=== PATIENT | female | born 1940 | race Caucasian/White ===

== ENCOUNTER → 2016-12-04 | Outpatient (CLI) | payer OTHER | LOC: BHFA 09:15 | PROVIDERS: ATTEND Internal Medicine Cardiovascular Disease | DX: I27.2 Other secondary pulmonary hypertension (principal) ==

== ENCOUNTER → 2016-12-08 | Outpatient (CLI) | payer OTHER | LOC: BMCIMAGING 13:28 | DX: Z12.31 Encounter for screening mammogram for malignant neoplasm of breast (principal) | CPT/HCPCS: G0202 ==

== ENCOUNTER → 2017-04-04 | Outpatient (CLI) | payer OTHER | LOC: FIMAGING 11:49 | PROVIDERS: ATTEND Family Medicine | DX: Z13.820 Encounter for screening for osteoporosis (principal) ==

== ENCOUNTER → 2017-11-06 | Outpatient (CLI) | payer OTHER | LOC: BMCIMAGING 15:44 | PROVIDERS: ATTEND Physician Assistant | DX: M17.11 Unilateral primary osteoarthritis, right knee (principal) ==

== ENCOUNTER → 2017-12-13 | Outpatient (CLI) | payer OTHER | LOC: BMCIMAGING 14:05 | PROVIDERS: ATTEND Family Medicine | DX: Z12.31 Encounter for screening mammogram for malignant neoplasm of breast (principal) ==

== ENCOUNTER → 2018-01-21 | Outpatient (CLI) | payer OTHER | LOC: BHFA 08:30 | PROVIDERS: ATTEND Internal Medicine Cardiovascular Disease | DX: I49.3 Ventricular premature depolarization (principal) ==

== ENCOUNTER 2018-10-25 14:52 | Emergency (ER) | payer OTHER ==
--- NOTE | 2018-10-25 15:15 | EDPHY ---
H & P Stated Complaint: PATINO/sinus infection Time Seen by Provider: 10/25/18 15:15 - Personal History Current Tetanus/Diphtheria Vaccine: Yes - Medical/Surgical History Hx Asthma: No Hx Chronic Respiratory Disease: No Hx Diabetes: No Hx Cardiac Disease: No Hx Renal Disease: No Hx Cirrhosis: No Hx Alcoholism: No Hx HIV/AIDS: No Hx Splenectomy or Spleen Trauma: No Other PMH: sezuire x 1 30 years ago, prediabetic, carpel tunnel B, catract surgery B, - Social History Smoking Status: Former smoker Constitutional: Initial Vital Signs Temperature (C) 38.0 C 10/25/18 14:59 Heart Rate 87 10/25/18 14:59 Respiratory Rate 18 10/25/18 14:59 Blood Pressure 123/52 H 10/25/18 14:59 O2 Sat (%) 83 L 10/25/18 14:59 O2 Delivery Mode Room Air O2 (L/minute) 2 Allergies/Adverse Reactions: amoxicillin [Amoxicillin] Allergy (Verified 10/25/18 15:03) clindamycin HCl [From Cleocin] Allergy (Verified 10/25/18 15:03) clindamycin palmitate HCl [From Cleocin] Allergy (Verified 10/25/18 15:03) clindamycin phosphate [From Cleocin] Allergy (Verified 10/25/18 15:03) erythromycin base [Erythromycin Base] Allergy (Verified 10/25/18 15:03) penicillin G Allergy (Verified 10/25/18 15:03) phenytoin sodium [From Dilantin] Allergy (Verified 10/25/18 15:03) phenytoin sodium extended [From Dilantin] Allergy (Verified 10/25/18 15:03) Home Medications: Medication Instructions Recorded Albuterol Sulfate [Albuterol 1 inh IH DAILY PRN 06/05/14 Inhaler Hfa] Cholecalciferol Vit D3 [Vitamin D3 1,000 unit PO DAILY 06/05/14 (*)] Fluticasone/Salmeter 500/50Mcg 1 inh IH DAILY 06/05/14 [Advair 500/50 (*)] Levothyroxine [Synthroid 112 mcg 112 mcg PO DAILY 06/05/14 (*)] Multivitamins [Multivitamin (*)] 1 tab PO DAILY 06/05/14 Aspirin [Aspirin 325 mg (*)] 325 mg PO DAILY PRN 06/12/14 Ibuprofen [Advil] 200 mg PO DAILY PRN 06/12/14 Enoxaparin [Lovenox] 30 mg SC BID #20 syr 06/27/14 traMADol [Ultram 50 mg (*)] 100 mg PO BID #40 tab 06/27/14 Fluticasone Nasal [Flonase Nasal 2 sprays NASAL BID #1 mdi 10/25/18 [place] (RX)] Sulfamethox/Tmp 800/160 mg 1 tab PO BID #14 tab 10/25/18 [Bactrim Ds] methylPREDNISolone [Medrol Dose 1 each PO AD #1 ea 10/25/18 Ruy] Medical Decision Making - Diagnostics Imaging Results: Imaging Impressions Head CT 10/25/18 15:25 Impression: 1. Mild bilateral maxillary sinusitis. Hypoplastic frontal sinuses. 2. No acute hemorrhage, hydrocephalus, or mass effect. 3. Cerebrovascular atherosclerosis. 4. No definite acute infarct. 5. Mild cerebral atrophy and mild microvascular ischemic gliosis. 6. Consider MRI of the brain, if there is continued clinical concern. Findings and recommendations discussed with Emergency Department physician, Lit Chandler MD, at 1605 hour, 10/25/2018. Final report concurs with initial preliminary interpretation. Chest X-Ray 10/25/18 15:26 Impression: 1. Findings most consistent with airways disease are noted. 2. See above report for additional findings. Imaging: Discussed imaging studies w/ scallop dredger Radiologist, I viewed and interpreted images myself ED Course/Re-evaluation: CHIEF COMPLAINT: Sinus pressure and headache. HISTORY OF PRESENT ILLNESS: The patient is a 77 y/o female with a history of pulmonary hypertension and asthma complaining of a headache and sinus pressure onset 2 weeks ago. She initially had a cough as well, but this has improved. However, now she is having painful sinuses and more nasal discharge than normal. The patient is normally on 2L supplemental oxygen and has O2Sats in the 80's, but she feels like the oxygen is not enough. No body aches, lightheadedness, chest pain, heart palpitations, shortness of breath, cough, abdominal pain, urinary or bowel complaints, numbness, paresthesias. REVIEW OF SYSTEMS: A comprehensive 10 system review of systems is otherwise negative aside from elements mentioned in the history of present illness and medical decision making. PHYSICAL EXAM: HR, BP, O2 Sat, RR. Temp noted General Appearance: Alert, well hydrated, appropriate, and non-toxic appearing. Head: Warmth and redness over the frontal sinuses that is exquisitely tender to the touch. Atraumatic without scalp tenderness or obvious injury Eyes: Pupils equal, round, reactive to light and accommodation, EOMI, no trauma , no injection. Ears: Clear bilaterally, no perforation, normal landmarks Nose: Atraumatic, no rhinorrhea, clear. Throat: There is no erythema or exudates, no lesions, normal tonsils, mucus membranes moist. Neck: Submandibular gland swelling. Supple, 2+ carotid upstroke, nontender, no lymphadenopathy. Respiratory: No retractions, no distress, no wheezes, and no accessory muscle use. Lungs are clear to auscultation bilaterally. Cardiovascular: Regular rate and rhythm, no murmurs, rubs, or gallops. Bilateral carotid, radial, dorsalis pedis, and posterior tibial pulses intact. Good capillary refill all extremities. Gastrointestinal: Abdomen is soft, nontender, non-distended, no masses, no rebound, no guarding, no peritoneal signs. Musculoskeletal: Normal active ROM of all extremities, atraumatic. Neurological: Alert, appropriate, and interactive. The patient has normal DTRs and non-focal cranial nerves, motor, sensory, and cerebellar exam. Skin: No rashes, good turgor, no nodules on palpation. Past medical history: Pulmonary hypertension, asthma (on Advair) Past surgical history: Cataract Family history: Denies Social history: at bedside, retired, lives in [place] DIAGNOSTICS/PROCEDURES/CRITICAL CARE TIME: Chest x-ray: Consistent with airways disease Head CT: Maxillary sinusitis, no signs of frontal sinusitis DIFFERENTIAL DIAGNOSIS: The differential diagnosis for the patient's headache included but was not limited to subarachnoid hemorrhage, migraine headache, tension headache and infectious causes such as meningitis, pharyngitis and sinusitis. MEDICAL DECISION MAKING: The patient is a 77 y/o female with a history of pulmonary hypertension and asthma presenting with a headache and sinus pressure onset 2 weeks ago. On exam she has erythema and warmth over the frontal sinuses that is exquisitely tender to the touch. She also has submandibular gland swelling. In addition to the frontal sinusitis symptoms she has O2Sats in the low 90's while in 2L O2, which the patient states is normal. Patient will need to have a head CT as I assume she has a moderate/severe frontal sinusitis. Chest x-ray, head CT, and labs ordered. 1547: Patient has an elevated WBC with a left shift. 1602: I spoke with Dr. Mejia, radiologist, regarding patient's head CT. Patient has maxillary sinusitis, but no signs of frontal sinusitis. Patient will need to start Bactrim, Medrol dose pack, and Flonase. She continues to not have worsening hypoxemia or dyspnea. 1631: Reassessed patient and discussed laboratory and imaging findings. Patient' s urine is probably contaminated. Her elevated WBC is most likely due to the sinusitis. She is comfortable with starting Bactrim, Medrol dose pack, and Flonase. I have advised her to follow up with an ENT. Return precautions provided; patient is comfortable with this plan. - Data Points Laboratory Results: Laboratory Results 10/25/18 15:30 10/25/18 15:30 10/25/18 10/25/18 10/25/18 16:16 15:30 15:30 WBC 18.38 10^3/uL H 10^3/uL (3.80-9.50) RBC 4.97 10^6/uL 10^6/uL (4.18-5.33) Hgb 14.6 g/dL g/dL (12.6-16.3) Hct 44.1 % % (38.0-47.0) MCV 88.7 fL fL (81.5-99.8) MCH 29.4 pg pg (27.9-34.1) MCHC 33.1 g/dL g/dL (32.4-36.7) RDW 14.5 % % (11.5-15.2) Plt Count 300 10^3/uL 10^3/uL (150-400) MPV 9.5 fL fL (8.7-11.7) Neut % (Auto) 89.2 % H % (39.3-74.2) Lymph % (Auto) 5.2 % L % (15.0-45.0) Kay % (Auto) 5.0 % % (4.5-13.0) Eos % (Auto) 0.0 % L % (0.6-7.6) Baso % (Auto) 0.2 % L % (0.3-1.7) Nucleat RBC Rel Count 0.0 % % (0.0-0.2) Absolute Neuts (auto) 16.41 10^3/uL H 10^3/uL (1.70-6.50) Absolute Lymphs (auto) 0.95 10^3/uL L 10^3/uL (1.00-3.00) Absolute Monos (auto) 0.91 10^3/uL H 10^3/uL (0.30-0.80) Absolute Eos (auto) 0.00 10^3/uL L 10^3/uL (0.03-0.40) Absolute Basos (auto) 0.03 10^3/uL 10^3/uL (0.02-0.10) Absolute Nucleated RBC 0.00 10^3/uL 10^3/uL (0-0.01) Immature Gran % 0.4 % % (0.0-1.1) Immature Gran # 0.08 10^3/uL 10^3/uL (0.00-0.10) Sodium 132 mEq/L L mEq/L (135-145) Potassium 4.5 mEq/L mEq/L (3.5-5.2) Chloride 99 mEq/L mEq/L (97-110) Carbon Dioxide 24 mEq/l mEq/l (22-31) Anion Gap 9 mEq/L mEq/L (6-14) BUN 20 mg/dL mg/dL (7-23) Creatinine 1.0 mg/dL mg/dL (0.6-1.0) Estimated GFR 54 Glucose 134 mg/dL H mg/dL (70-100) Calcium 9.3 mg/dL mg/dL (8.5-10.4) Urine RBC 25-50 /hpf H /hpf (0-3) Urine WBC 50-182 /hpf H /hpf (0-3) Ur Epithelial Cells 1+ /lpf /lpf (NONE-1+) Hyaline Casts 25-50 /lpf H /lpf (0-1) Urine Mucus 4+ /lpf H /lpf (NONE-1+) Departure - Departure Disposition: Home, Routine, Self-Care Clinical Impression: Maxillary sinusitis Qualifiers: Chronicity: acute Recurrence: not specified as recurrent Qualified Code(s): J01.00 - Acute maxillary sinusitis, unspecified Condition: Good Instructions: Sinusitis (ED) Additional Instructions: 1. Follow up with your primary care physician within 72 hours for reevaluation. 2. Follow up with and ENT within 72 hours for reevaluation. 3. Drink plenty of fluids. 4. Return to the emergency department immediately for high fever, severe headache or neck pain, difficulty breathing, abdominal pain, rash or other worsening of condition. 5. Take Bactrim, the Medrol dose pack, and Flonase as prescribed. 6. Take Mucinex as directed. Referrals: Fara Kaiser MD [Primary Care Provider] - As per Instructions Rene Garber MD [Medical Doctor] - As per Instructions Prescriptions: Fluticasone Nasal [Flonase Nasal [place] (RX)] 2 sprays NASAL BID #1 mdi methylPREDNISolone [Medrol Dose Ruy] 1 each PO AD #1 ea Sulfamethox/Tmp 800/160 mg [Bactrim Ds] 1 tab PO BID #14 tab Report Scribed for: Lit Chandler Report Scribed by: Araceli Trivedi Date of Report: 10/25/18 Time of Report: 15:16
[2018-10-25 15:40] LABS: PLATELET COUNT 300 10^3/uL (150-400)
[2018-10-25 16:52] VITALS: BP 132/68
== END 2018-10-25 16:49 | disposition home or self-care (01) ==
DX: J01.00 Acute maxillary sinusitis, unspecified (principal); R73.03 Prediabetes; I27.20 Pulmonary hypertension, unspecified; J45.909 Unspecified asthma, uncomplicated; Z79.899 Other long term (current) drug therapy

== ENCOUNTER 2018-11-08 16:41 | Observation (INO) | payer OTHER ==
--- NOTE | 2018-11-08 16:40 | EDPHY ---
H & P Time Seen by Provider: 11/08/18 16:47 Constitutional: Initial Vital Signs Temperature (C) 36.7 C 11/08/18 16:54 Heart Rate 132 H 11/08/18 16:54 Respiratory Rate 18 11/08/18 16:54 Blood Pressure 138/100 H 11/08/18 16:54 O2 Sat (%) 92 11/08/18 16:54 O2 Delivery Mode Room Air Allergies/Adverse Reactions: penicillin G Allergy (Verified 11/08/18 16:57) phenytoin sodium [From Dilantin] Allergy (Verified 11/08/18 16:57) Home Medications: Medication Instructions Recorded Albuterol Sulfate [Albuterol 1 inh IH DAILY PRN 06/05/14 Inhaler Hfa] Cholecalciferol Vit D3 [Vitamin D3 1,000 unit PO DAILY 06/05/14 (*)] Fluticasone/Salmeter 500/50Mcg 1 inh IH DAILY 06/05/14 [Advair 500/50 (*)] Levothyroxine [Synthroid 112 mcg 112 mcg PO DAILY 06/05/14 (*)] Multivitamins [Multivitamin (*)] 1 tab PO DAILY 06/05/14 Aspirin [Aspirin 325 mg (*)] 325 mg PO DAILY PRN 06/12/14 Ibuprofen [Advil] 200 mg PO DAILY PRN 06/12/14 Enoxaparin [Lovenox] 30 mg SC BID #20 syr 06/27/14 traMADol [Ultram 50 mg (*)] 100 mg PO BID #40 tab 06/27/14 Fluticasone Nasal [Flonase Nasal 2 sprays NASAL BID #1 mdi 10/25/18 [place] (RX)] Sulfamethox/Tmp 800/160 mg 1 tab PO BID #14 tab 10/25/18 [Bactrim Ds] methylPREDNISolone [Medrol Dose 1 each PO AD #1 ea 10/25/18 Ruy] Medical Decision Making ED Course/Re-evaluation: CHIEF COMPLAINT: Atrial fibrillation with RVR HISTORY OF PRESENT ILLNESS: The patient is a 78 y/o female with a history of a heart catheterization and pulmonary hypertension arriving via EMS for atrial fibrillation with RVR. The patient reports that she had a "heart catheterization many years ago". Since the catheterization she has seen [facility] yearly for a nuclear stress test. Due to her cardiac problems she takes Diltiazem daily but reports that the does not need a pacemaker. Per the patient she went to an urgent care today for a cough and feeling more tired than normal. While at urgent care, they noticed that the patient was in A-fib with RVR. The patient reports that she did not realize her heart rate was abnormal and cannot pinpoint a time when she started "feeling off". She denies chest pain or pressure. No fever, headache, body aches, lightheadedness, chest pain, heart palpitations, shortness of breath , abdominal pain, urinary or bowel complaints, numbness, paresthesias. REVIEW OF SYSTEMS: A comprehensive 10 system review of systems is otherwise negative aside from elements mentioned in the history of present illness and medical decision making. PHYSICAL EXAM: HR, BP, O2 Sat, RR. Temp noted General Appearance: Alert, well hydrated, appropriate, and non-toxic appearing. Head: Atraumatic without scalp tenderness or obvious injury Eyes: Pupils equal, round, reactive to light and accommodation, EOMI, no trauma , no injection. Ears: Clear bilaterally, no perforation, normal landmarks Nose: Atraumatic, no rhinorrhea, clear. Throat: There is no erythema or exudates, no lesions, normal tonsils, mucus membranes moist. Neck: Supple, 2+ carotid upstroke, nontender, no lymphadenopathy. Respiratory: No retractions, no distress, no wheezes, and no accessory muscle use. Lungs are clear to auscultation bilaterally. Cardiovascular: Irregularly irregular rhythm, no murmurs, rubs, or gallops. Bilateral carotid, radial, dorsalis pedis, and posterior tibial pulses intact. Good capillary refill all extremities. Gastrointestinal: Abdomen is soft, nontender, non-distended, no masses, no rebound, no guarding, no peritoneal signs. Musculoskeletal: Normal active ROM of all extremities, atraumatic. Neurological: Alert, appropriate, and interactive. The patient has normal DTRs and non-focal cranial nerves, motor, sensory, and cerebellar exam. Skin: No rashes, good turgor, no nodules on palpation. Past medical history: Pulmonary hypertension, asthma (on Advair) Past surgical history: Heart catheterization, cataract Family history: Denies Social history: at bedside, retired, lives in [place] DIAGNOSTICS/PROCEDURES/CRITICAL CARE TIME: EKG: The 12 lead EKG was interpreted by myself as atrial fibrillation with a rate of 150 and RVR. See hard copy and/or "tracemaster" electronic copy for interpretation. Critical care time spent by me, Dr. Chandler, exclusively with this patient was 30 minutes, exclusive of PA time and exclusive of procedures. The organ system at risk was cardiovascular and I gave Diltiazem and Lovenox and transferred the patient to the floor to prevent worsening of the patients condition. DIFFERENTIAL DIAGNOSIS: The differential diagnosis for the patient's tachycardia included but was not limited to various causes of sinus tachycardia such as dehydration and medicines , SVT, atrial flutter, atrial fibrillation, pulmonary causes. MEDICAL DECISION MAKING: The patient is a 78 y/o female with a history of a heart catheterization and pulmonary hypertension arriving via EMS for atrial fibrillation with RVR. The patient reports that she had a "heart catheterization many years ago" and follows up with [facility] yearly and takes PO Diltiazem. While at urgent care, they noticed that the patient was in A-fib with RVR. The patient reports that she did not realize her heart rate was abnormal and cannot pinpoint a time when she started "feeling off". On exam she has an irregularly irregular heart rate. As there is no time of onset so she is not a candidate for cardioversion. Labs and EKG ordered. 100mg SC Lovenox, 20mg IV Diltiazem Bolus and Diltiazem drip administered. I will page the hospitalist and doctor chiropractic as this patient will need to be admitted for new onset a-fib. 1649: I interpreted patient's EKG as atrial fibrillation with a rate of 150 and RVR. 1700: I consulted with Dr. Diallo, doctor chiropractic, regarding patient. He agrees to consult on this patient for new onset A-fib with RVR. He will cardiovert this patient tomorrow. Patient will need to be NPO. 1702: I consulted with the hospitalist service, Dr. Fernando accepts admission of this patient. - Data Points Laboratory Results: Laboratory Results 11/08/18 16:46 11/08/18 16:46 11/08/18 11/08/18 16:46 16:46 WBC 12.25 10^3/uL H 10^3/uL (3.80-9.50) RBC 5.45 10^6/uL H 10^6/uL (4.18-5.33) Hgb 15.9 g/dL g/dL (12.6-16.3) Hct 49.3 % H % (38.0-47.0) MCV 90.5 fL fL (81.5-99.8) MCH 29.2 pg pg (27.9-34.1) MCHC 32.3 g/dL L g/dL (32.4-36.7) RDW 15.3 % H % (11.5-15.2) Plt Count 370 10^3/uL 10^3/uL (150-400) MPV 9.6 fL fL (8.7-11.7) Neut % (Auto) 75.0 % H % (39.3-74.2) Lymph % (Auto) 16.2 % % (15.0-45.0) Coleman % (Auto) 6.9 % % (4.5-13.0) Eos % (Auto) 1.1 % % (0.6-7.6) Baso % (Auto) 0.5 % % (0.3-1.7) Nucleat RBC Rel Count 0.0 % % (0.0-0.2) Absolute Neuts (auto) 9.19 10^3/uL H 10^3/uL (1.70-6.50) Absolute Lymphs (auto) 1.98 10^3/uL 10^3/uL (1.00-3.00) Absolute Monos (auto) 0.85 10^3/uL H 10^3/uL (0.30-0.80) Absolute Eos (auto) 0.13 10^3/uL 10^3/uL (0.03-0.40) Absolute Basos (auto) 0.06 10^3/uL 10^3/uL (0.02-0.10) Absolute Nucleated RBC 0.00 10^3/uL 10^3/uL (0-0.01) Immature Gran % 0.3 % % (0.0-1.1) Immature Gran # 0.04 10^3/uL 10^3/uL (0.00-0.10) Sodium 138 mEq/L mEq/L (135-145) Potassium 3.8 mEq/L mEq/L (3.5-5.2) Chloride 101 mEq/L mEq/L (97-110) Carbon Dioxide 25 mEq/l mEq/l (22-31) Anion Gap 12 mEq/L mEq/L (6-14) BUN 32 mg/dL H mg/dL (7-23) Creatinine 1.0 mg/dL mg/dL (0.6-1.0) Estimated GFR 54 Glucose 106 mg/dL H mg/dL (70-100) Calcium 10.2 mg/dL mg/dL (8.5-10.4) Magnesium 1.9 mg/dL mg/dL (1.6-2.3) NT-Pro-B Natriuret Pep 1320 pg/mL H pg/mL (0-450) Medications Given: Discontinued Medications Diltiazem HCl (Cardizem 25 Mg/5 Ml Vial) 20 mg IVP EDNOW ONE Stop: 11/08/18 16:59 Last Admin: 11/08/18 17:21 Dose: 20 mg Enoxaparin Sodium (Lovenox) 100 mg SC EDNOW ONE Stop: 11/08/18 16:59 Last Admin: 11/08/18 17:22 Dose: 100 mg Diltiazem/Dextrose (Diltiazem 125mg/125ml (Premix)) 125 mls @ 0 mls/hr IV EDNOW ONE; As Directed PRN Reason: Protocol Stop: 11/08/18 16:59 Last Admin: 11/08/18 17:21 Dose: 125 mls Departure - Departure Disposition: [facility] Inpatient Acute Clinical Impression: New onset atrial fibrillation, Atrial fibrillation with RVR Condition: Fair Referrals: Patient,NotPresent [Primary Care Provider] - As per Instructions Report Scribed for: Lit Chandler Report Scribed by: Araceli Trivedi Date of Report: 11/08/18 Time of Report: 17:07
[2018-11-08] MEDS ORDERED: ENOXAPARIN 100 MG/ML SYR SC ONE (16:58)
[2018-11-08] MEDS ORDERED: DILTIAZEM 25 MG/5 ML VIAL IVP ONE (16:58)
[2018-11-08] MEDS ORDERED: DILTIAZEM HCL/D5W 125 ML IV ONE (16:58)
[2018-11-08 17:04] LABS: PLATELET COUNT 370 10^3/uL (150-400)
[2018-11-08] MEDS ORDERED: ONDANSETRON DISINTEGRATING 4 MG TAB PO PRN (17:49)
[2018-11-08] MEDS ORDERED: ONDANSETRON 4 MG/2 ML VIAL IVP PRN (17:49)
[2018-11-08] MEDS ORDERED: ACETAMINOPHEN 325 MG TAB PO PRN (17:49)
[2018-11-08] MEDS ORDERED: DILTIAZEM HCL/D5W 125 ML IV SCH (18:00)
--- NOTE | 2018-11-08 18:52 | PDGENHP ---
History and Physical - Chief Complaint Cough - History of Present Illness Leigha Bush is a 78 yo F with a PMHx of Pulm HTN, Asthma, recent sinusitis who presents to [facility] for A Fib w RVR. Patient was recently seen in [facility] ED on for headache, sinus pain, nasal congestion. Head CT was performed which showed sinusitis, patient was discharged from ED on Bactrim, Medrol dose pack, and Flonase which she has since completed which resolution of symptoms. She reports that she started to have a dry cough yesterday and presented to urgent care today for further evaluation. She was found to be in A Fib w RVR at that time and was sent to ED. She reports a possible hx of A Fib, being told she has an irregular rhythm and currently on Diltiazem. She denies any chest pain, palpitations, SOB, f/c, d/c, dysuria, edema, abdominal pain, headache, LH/ dizziness. History Information - Allergies/Home Medication List Allergies/Adverse Reactions: penicillin G Allergy (Verified 11/08/18 16:57) phenytoin sodium [From Dilantin] Allergy (Verified 11/08/18 16:57) Home Medications: Albuterol Sulfate [Proventil Hfa] 1 - 2 puffs IH Q6H PRN 11/08/18 [Last Taken Unknown] Diltiazem HCl [Cartia Xt] 120 mg PO DAILY 11/08/18 [Last Taken 11/08/18] Fluticasone/Salmeter 500/50Mcg [Advair 500/50 (*)] 1 puffs IH BID 11/08/18 [ Last Taken Unknown] Furosemide [Lasix 20 MG (*)] 30 mg PO DAILY 11/08/18 [Last Taken 11/08/18] Levothyroxine [Synthroid 112 mcg (*)] 112 mcg PO DAILY06 11/08/18 [Last Taken ] I have personally reviewed and updated: family history, medical history, social history, surgical history - Past Medical History asthma Additional medical history: Pulm HTN - Surgical History Reports: no pertinent surgical hx - Family History Positive for: non-pertinent - Social History Smoking Status: Former smoker Review of Systems Review of Systems: ROS: 10pt was reviewed & negative except for what was stated in HPI & below Physical Exam Physical Exam: Temp Pulse Resp BP Pulse Ox 36.4 C 109 H 20 127/75 H 89 L 11/08/18 18:29 11/08/18 18:29 11/08/18 18:29 11/08/18 18:29 11/08/18 18:29 Constitutional: no apparent distress Eyes: PERRL Ears, Nose, Mouth, Throat: moist mucous membranes Cardiovascular: irregularly irregular, tachycardia Respiratory: no respiratory distress, expiratory wheeze Gastrointestinal: normoactive bowel sounds Genitourinary: No wiley in urethra Skin: warm Musculoskeletal: full muscle strength Neurologic: AAOx3 Psychiatric: interacting appropriately Lab Data & Imaging Review 11/08/18 16:46 11/08/18 16:46 WBC 12.25 10^3/uL (3.80-9.50) H 11/08/18 16:46 RBC 5.45 10^6/uL (4.18-5.33) H 11/08/18 16:46 Hgb 15.9 g/dL (12.6-16.3) 11/08/18 16:46 Hct 49.3 % (38.0-47.0) H 11/08/18 16:46 MCV 90.5 fL (81.5-99.8) 11/08/18 16:46 MCH 29.2 pg (27.9-34.1) 11/08/18 16:46 MCHC 32.3 g/dL (32.4-36.7) L 11/08/18 16:46 RDW 15.3 % (11.5-15.2) H 11/08/18 16:46 Plt Count 370 10^3/uL (150-400) 11/08/18 16:46 MPV 9.6 fL (8.7-11.7) 11/08/18 16:46 Neut % (Auto) 75.0 % (39.3-74.2) H 11/08/18 16:46 Lymph % (Auto) 16.2 % (15.0-45.0) 11/08/18 16:46 [place] % (Auto) 6.9 % (4.5-13.0) 11/08/18 16:46 Eos % (Auto) 1.1 % (0.6-7.6) 11/08/18 16:46 Baso % (Auto) 0.5 % (0.3-1.7) 11/08/18 16:46 Nucleat RBC Rel Count 0.0 % (0.0-0.2) 11/08/18 16:46 Absolute Neuts (auto) 9.19 10^3/uL (1.70-6.50) H 11/08/18 16:46 Absolute Lymphs (auto) 1.98 10^3/uL (1.00-3.00) 11/08/18 16:46 Absolute Monos (auto) 0.85 10^3/uL (0.30-0.80) H 11/08/18 16:46 Absolute Eos (auto) 0.13 10^3/uL (0.03-0.40) 11/08/18 16:46 Absolute Basos (auto) 0.06 10^3/uL (0.02-0.10) 11/08/18 16:46 Absolute Nucleated RBC 0.00 10^3/uL (0-0.01) 11/08/18 16:46 Immature Gran % 0.3 % (0.0-1.1) 11/08/18 16:46 Immature Gran # 0.04 10^3/uL (0.00-0.10) 11/08/18 16:46 Sodium 138 mEq/L (135-145) 11/08/18 16:46 Potassium 3.8 mEq/L (3.5-5.2) 11/08/18 16:46 Chloride 101 mEq/L (97-110) 11/08/18 16:46 Carbon Dioxide 25 mEq/l (22-31) 11/08/18 16:46 Anion Gap 12 mEq/L (6-14) 11/08/18 16:46 BUN 32 mg/dL (7-23) H 11/08/18 16:46 Creatinine 1.0 mg/dL (0.6-1.0) 11/08/18 16:46 Estimated GFR 54 11/08/18 16:46 Glucose 106 mg/dL (70-100) H 11/08/18 16:46 Calcium 10.2 mg/dL (8.5-10.4) 11/08/18 16:46 Magnesium 1.9 mg/dL (1.6-2.3) 11/08/18 16:46 NT-Pro-B Natriuret Pep 1320 pg/mL (0-450) H 11/08/18 16:46 Assessment & Plan Assessment: Atrial fibrillation with RVR (Acute) - Questionable hx of A Fib, currently on Diltiazem - Found to be in A Fib RVR, HR 150's - S/p IVP Diltiazem and started on Dilt gtt with control of HR - Cardiology consulted in ED, recommend NPO and DCCV tomorrow AM - Continue Dilt gtt overnight for rate control - Will continue home PO Diltiazem for now - CHADsVASC atleast 3 given age and sex, s/p 100 mg Lovenox in ED, start on PO AC in the AM Recent Sinusitis - S/p course of bactrim, steroids, flonase - Pt now with dry cough, WBC 12.2 on admission, Tmax 38 - Will check Resp PCR to evaluate etiology of cough, could be 2/2 to chronic lung disease, will hold off on abx for now - Anti-tussives PRN Asthma - Continue home Inhalers, will switch Albuterol to Ipratropium given A Fib Pulm HTN - Continue home Lasix Hypothyroidism - Continue home synthroid FEN: Cardiac, NPO at midnight DVT PPx: S/p Lovenox this evening, start PO AC tomorrow likely Code: FULL Dispo: Admit to Observation
[2018-11-08] MEDS ORDERED: IPRATROPIUM BROMIDE 0.5 MG/2.5 ML DEYVIAL IH PRN (18:58)
--- NOTE | 2018-11-08 19:21 | CPEKG ---
Test Reason : OPEN Blood Pressure : / mmHG Vent. Rate : 150 BPM Atrial Rate : 349 BPM P-R Int : 134 ms QRS Dur : 084 ms QT Int : 282 ms P-R-T Axes : 000 072 -69 degrees QTc Int : 446 ms Atrial fibrillation with rapid V-rate Repolarization abnormality, prob rate related Confirmed by Lit Chandler [id number]) on 11/08/2018 7:21:18 PM Referred By: Lit Chandler Confirmed By:Lit Chandler
[2018-11-08] MEDS: guaiFENesin 600 MG TAB.ER PO SCH (21:35)
[2018-11-09] MEDS: FLUTICASONE/SALMETER 500/50MCG DISKUS IH SCH ×2 (03:20→09:12)
[2018-11-09] MEDS ORDERED: LEVOTHYROXINE 112 MCG TAB PO SCH (06:00)
--- NOTE | 2018-11-09 08:36 | HOSPPROG ---
Hospitalist Progress Note Objective: Vital Signs Temp Pulse Resp BP Pulse Ox 36.4 C 92 18 124/55 H 95 11/09/18 07:40 11/09/18 07:40 11/09/18 07:40 11/09/18 07:40 11/09/18 07:40 Microbiology 11/08/18 21:45 Respiratory Panel (PCR) - Final Nasal, Sinus - Swab No Organism Detected By Pcr 11/08/18 11/09/18 11/10/18 05:59 05:59 05:59 Intake Total 530 Output Total 250 Balance 530 -250 ICD10 Worksheet Patient Problems: Problems Problem Status Onset Atrial fibrillation with RVR Acute New onset atrial fibrillation Acute Osteoarthritis of left knee Acute
[2018-11-09] MEDS ORDERED: DILTIAZEM CD 120 MG CAP PO SCH (09:00)
[2018-11-09] MEDS ORDERED: ENOXAPARIN 40 MG/0.4 ML SYR SC SCH (09:00)
[2018-11-09] MEDS ORDERED: FUROSEMIDE 20 MG TAB PO SCH (09:00)
[2018-11-09] MEDS ORDERED: APIXABAN 5 MG TAB PO SCH (09:15)
[2018-11-09] MEDS ORDERED: DILTIAZEM CD 180 MG CAP PO SCH (10:00)
[2018-11-09] MEDS: guaiFENesin 600 MG TAB.ER PO SCH (10:03)
--- NOTE | 2018-11-09 10:25 | GCON ---
[f rep st] CONSULTATION CARDIOLOGY CONSULTATION. INDICATION FOR CARDIOLOGY CONSULTATION: New onset of atrial fibrillation with rapid ventricular resp onse. REQUESTING PHYSICIAN: Milad Fernando DO, of hospital services. HISTORY OF PRESENT ILLNESS: Ms. Camacho is a 78-year-old female, who is known to our practice. Her primary hand inspector is Dr. Carmen way. She has significant cardiac history that includes PVCs, sle ep apnea, in which she is on CPAP, and nocturnal oxygen, chronic hypoxic respiratory failure, and pul monary hypertension. She reports to me over the last 2 weeks, she has been dealing with ongoing sinu s and upper respiratory infection. She was seen approximately 2 weeks ago for her upper in which she was told she had significant sinusitis. She was treated with antibiotics, and started on prednisone . She reported that she had been feeling better with improved symptoms, but stating over the last 2 days of having a cough. She was seen in urgent care yesterday for this cough, and found to have an i rregular pulse. Electrocardiogram was done, which noted she was in atrial fibrillation with rapid ve ntricular response. Urgent care recommended for her to come over and be seen for further evaluation to the hospital. She does state that she did not want to go directly to the hospital, so she drove h erself home, and then called 911 for an ambulance to take her to the [facility] ED. Up on arrival, electrocardiogram was done, again which noted atrial fibrillation with rapid ventricular response with ventricular rates up to 150 BPM, nonspecific T-wave abnormalities. Laboratory studies were drawn, and she was noted to have an elevated white blood cell count of 12.25. She was also note d to have elevated BNP of 1320. She was given IV diltiazem, and admitted to the PCU for overnight ob servation. Late last night, early this morning, she did convert back to sinus rhythm, patient statin g she did not feel the palpitations, and reporting no chest pain or pressure, and she did not feel an y significant worsening in her chronic shortness of breath. She denies any lightheadedness, orthopne a, PND. No significant worsening in her peripheral edema, and stating that she has not noticed a sig nificant weight gain. Besides as mentioned above, she reports no recent fevers or chills. She denie s any bleeding issues. PAST MEDICAL HISTORY: The patient with significant past medical history including premature ventricu lar contractions, sleep apnea in which she is currently on CPAP and nocturnal oxygen, asthma, chronic hypoxic respiratory failure, and pulmonary hypertension. PAST SURGICAL HISTORY: Includes carpal tunnel syndrome both left and right, cataract surgery, total knee replacement. She also has history of coronary angiogram in 12/2014, in which she was noted to h ave normal coronary arteries. FAMILY HISTORY: Positive for asthma, CVA, hyperlipidemia, and malignancy. No premature coronary art uma disease. SOCIAL HISTORY: She is a former smoker. She occasionally uses alcohol. She lives alone. She is re tired. She is a . She denies any illicit drug use. ALLERGIES: Penicillin G and dilantin. MEDICATIONS: Home medications of Synthroid 112 mcg p.o. daily, Lasix 30 mg p.o. daily, diltiazem 120 mg p.o. daily, Advair 1 puff inhaled twice daily, albuterol 1-2 puffs inhaled q.6 hours p.r.n. REVIEW OF SYSTEMS: A 10-point review of systems done on this patient and all negative except as ment ioned above. PHYSICAL EXAMINATION: GENERAL APPEARANCE: Medium built, morbidly obese, female. She is a lert and oriented to person, place, time, and situation. Appears to be in no acute distress at the t marguerite of my examination. VITAL SIGNS: Current vital signs are blood pressure 124/55, heart rate of 92 , sinus rhythm on the monitor. Respirations 18. Saturating 95% on 3.5 L nasal cannula. Temperature 36.4 degrees Celsius. HEENT: Head is normocephalic. Lips and tongue are pink and moist with no si gns of cyanosis. Conjunctivae pink. NECK: Trachea is midline. +2 carotid pulses bilateral, no aus cultated bruits, jugular vein 4-5 cm above sternal notch at a 45 degree angle. LUNGS: Clear, but di minished in bases bilateral. No rhonchi, rales or wheezes. No accessory muscle use, no intercostal muscle retraction noted. CARDIAC: Regular rate, regular rhythm, S1, S2, no S3, S4, gallops, rubs, o r murmurs noted. ABDOMEN: Soft, nontender, bowel sounds x4 quadrants. No organomegaly, no palpable masses. SKIN: [place], warm, dry, no cyanosis, no clubbing, trace to +1 peripheral edema bilateral lo wer extremities. VASCULAR: +2 carotids bilateral, +2 radials bilateral, +1 dorsal pedal and posteri or tibial pulses bilateral. LABORATORY STUDIES: Laboratory studies drawn in the ER last night, showing WBC of 12.25, hemoglobin of 15.9, hematocrit 49.3, platelet count of 370. Sodium 138, potassium 3.8, chloride 101, CO2 25, BU N 32, creatinine 1.0, glucose 106, calcium 10.2, magnesium 1.9. ProBNP 1320. STUDIES: Electrocardiogram as mentioned above. Note, patient has had a previous coronary angiogram on December 29, 2014, which showed normal coronary arteries with normal LV EF of 70%. She did have an ech ocardiogram done January 21, 2018, in our office which noted normal LV size and EF of 63% with no wall m otion abnormalities. Mild MR. RVSP measuring at 46 mmHg. ASSESSMENT AND PLAN: 1. Paroxysmal atrial fibrillation: Patient with noted history of PVCs, but this is her first notabl e episodes of paroxysmal atrial fibrillation. She was noted to have ventricular rate up to 150 BPM. She was noted to be asymptomatic of these palpitations, which were found incidentally due to a cough , and she has recent history of upper respiratory infection, and being on prednisone. She has known history of hypothyroidism and is currently on Synthroid. At this time, she did convert on diltiazem. At this time, I will increase her home oral dose of diltiazem to 180 mg p.o. daily. She does have a CHADS-VASc score of 3 for age and sex. She does meet the qualifications for anticoagulation. We d id discuss the potential risks and benefits of both warfarin and the new oral anticoagulation medicat ions. She would like to attempt to be started on Eliquis. She verbalizes understanding of the risks and benefits. We will start her on 5 mg p.o. I would like her to get an echocardiogram done today due to her new onset of atrial fibrillation for re-evaluation of a cardiac structure. I would also h ave her get a TSH level drawn to assure no hyperthyroidism. 2. Valvular heart disease: Patient's previous echocardiogram noted mild MR. Will plan on repeating echocardiogram for re-evaluation, she appears fairly euvolemic on physical examination. 3. Pulmonary hypertension: Patient with noted history of pulmonary hypertension and chronic hypoxia . Repeat echocardiogram today to re-evaluate pressures, continue on current diuretic medication narciso . The patient was noted to have elevated BNP, potentially this was due to her atrial fibrillation with RVR, in combination with her chronic pulmonary hypertension. 4. Asthma: She has been resumed on home inhalers. I defer to hospital management. 5. Hypothyroidism. She has been resumed on home thyroid medications. Will check TSH as mentioned yahaira demarco. Potentially, if her echocardiogram looks unchanged, from cardiac standpoint, she has been started on anticoagulation, I do feel that potentially she could be discharged later today, with plans of her be ing followed up in our office early in the next week to 10 days, with plans of putting her on a 30-da y monitor to evaluate her atrial fibrillation burden. I will plan for our office to call her and set up an appointment for her to be seen by her primary hand inspector in the next 7-10 days. /[id number]/MODL
--- NOTE | 2018-11-09 11:26 | ECHO ---
[email or web address] [address] [address] Main: [phone] Echocardiography Examination Transthoracic Name: PATRICIA SAUCEDA MR#: [id number] Study Date: 11/09/2018 Study Time: 09:17 AM Date of : 1940 Age: 78 year(s) Height: 157.5 cm (62 in.) Weight: 102.06 kg (225 lb.) BSA: 2.01 m2 Gender: Female Examination: Echo Contrast: Image Quality: Good Rhythm: Heart Rate: BP: 124 mmHg/55 mmHg Indication: New onset atrial fibrillation Procedure Staff Referring Physician: [place] Worker: Subha Salmon [facility] Reading Physician: Evan Diallo MD Requesting Provider: Ordering Physician: Yordy Hernandez NP Indication: New onset atrial fibrillation Measurements Chambers AV/MV Label Value Normal Value Label Value Normal Value EF lower range (%) 65 % AV PGmean 4 mmHg EF upper range (%) 70 % AV Vmax 1.34 m/s IVSd, 2D 0.8 cm (0.6cm - 1.1cm) MV A Vmax 0.69 m/s LVDd, 2D 4.7 cm (3.9cm - 5.3cm) MV E' lateral 0.07 m/s LVDs, 2D 3 cm (2.1cm - 4cm) MV E' mean 0.07 m/s LVEF, 2D 67 % (54% - 74%) MV E' septal 0.07 m/s LVEF, BP 70 % (55% - 70%) MV E Vmax 0.98 m/s LVPWd, 2D 1.1 cm MV E/A 1.42 LA Volume, BP 45 ml (22ml - 52ml) MV E/E' lateral 13.6 LADs, 2D 3.7 cm (2.7cm - 3.8cm) MV E/E' mean 14 LAESV index, BP 22.4 ml/m2 MV E/E' septal 14.7 (0.45 - 1.25) Additional Vessels TV/PV Label Value Normal Value Label Value Normal Value AoRoot, MM 2.6 cm (2.2cm - 3.7cm) RA Pressure 5 mmHg IVC 2 cm (1.2cm - 2.3cm) RVSP 42 mmHg TR Pmax 37 mmHg TR Vmax 3.06 m/s Patient: PATRICIA SAUCEDA Study Date: 11/09/2018 Page 1 of 3 09:17 AM Conclusions Left Ventricle: Normal global systolic left ventricular function. EF range is estimated at 65 % - 70 %. Right Ventricle: Right ventricular systolic function is normal. Left Atrium: The left atrium is normal in size. Right Atrium: The right atrium is normal in size. Tricuspid Valve: Right Ventricular systolic pressure is measured at 42 mmHg. Pulmonary artery pressure is mildly increased. Overall Conclusions: Compared to the echo of 01/28 the RVSP has improved from 46mmHG to 42mmHG. Findings Left Ventricle: Diastolic dysfunction is present.. Left ventricle is normal in size. Normal global systolic left ventricular function. The ejection fraction, measured by Simpsons method, is 70 %. EF range is estimated at 65 % - 70 %. Left ventricle wall thickness is normal. There are no regional wall motion abnormalities. IVS: The septum is intact. Right Ventricle: Normal size right ventricle. Right ventricular wall thickness is normal. Right ventricular systolic function is normal. Left Atrium: The left atrium is normal in size. IAS: Normal appearing atrial septum. Right Atrium: The right atrium is normal in size. Mitral Valve: Mitral valve appears structurally normal. Mild mitral regurgitation. No mitral valve stenosis. Aortic Valve: Aortic leaflets exhibit normal cuspal separation. No aortic valve regurgitation. There is no aortic stenosis. The aortic valve is trileaflet. Tricuspid Valve: Tricuspid valve leaflets are normal in appearance and function. Mild tricuspid regurgitation. No tricuspid valve stenosis. Right Ventricular systolic pressure is measured at 42 mmHg. Pulmonary artery pressure is mildly increased. Pulmonic Valve: Pulmonic valve is poorly visualized. Trivial pulmonic valve regurgitation is present. There is no pulmonic valve stenosis. Aorta: The aorta is normal. The aortic root size in M-mode measures 2.6 cm. Aorta Measurements AoRoot, MM is 2.6 cm. IVC: The inferior vena cava is normal in size. Patient: PATRICIA SAUCEDA Study Date: 11/09/2018 Page 2 of 3 09:17 AM Pericardium: No pericardial effusion. No pleural effusion present. Exam Details Procedure Ordered: Echo Procedure Status: Routine study Image Quality: Good Facility Location: Cardiac Echo 1 (No Signature Object) Patient: PATRICIA SAUCEDA Study Date: 11/09/2018 Page 3 of 3 09:17 AM [id number]
[2018-11-09 11:43] VITALS: BP 118/59
--- NOTE | 2018-11-09 12:58 | PDDCSUM ---
Discharge Summary Discharge Summary: Date of Admission: 11/08/2018 Date of Discharge: 11/09/2018 Consultants: cardiology Studies: TTE Discharge Diagnoses: 1. Atrial fibrillation with RVR 2. Diastolic dysfunction 3. Chronic hypoxemic respiratory failure 4. Recent sinusitis 5. SHAUNA on CPAP 6. Asthma 7. Pulmonary hypertension 8. H/o PVCs 9. Hypothyroidism Brief Hospital Course: 78yo F SHAUNA, pulmonary hypertension, chronic O2 dependence who is followed by cardiology for PVCs presented with an irregular heart beat. She was treated for a sinus infection about 2 weeks ago with antibiotics and steroids. She clinically improved and then developed a cough 2 days ago. Went to urgent care on day of admission who noted irregular heart beat and referred her to ED where she was found to be in rapid atrial fibrillation, which was a new diagnosis for her. She was started on a diltiazem gtt and converted to sinus rhythm. Cardiology was consulted. Her PO diltiazem (which she was already on for PVC suppression) was increased from 120 to 180mg daily. She was started on anticoagulation (imxrf5dlel of 3) and discharged with a prescription for eliquis. She will follow up with her primary extension service advisor, Dr Espinoza, in 7-10 days. An echocardiogram performed did demonstrate diastolic dysfunction and mild MR and TR. Her BNP was elevated at 1300. I suspect her cough was related to mild pulmonary edema in setting of her rapid afib. Her home lasix dose was continued and she clinically appeared euvolemic. A respiratory viral PCR was negative. Medications: Please refer to EMR for complete list. I sent prescriptions for xarelto (starter pack) and diltiazem ER 180mg QD to her pharmacy. Follow Up Plan: 1. Cardiology (Carmen Espinoza) in 7-10 days Physical Exam: Vitals and telemetry reviewed, sinus rhythm. Alert and oriented, rrr, no murmur, lungs clear, abdomen soft, no leg edema or JVD.
--- NOTE | 2018-11-09 13:37 | ASMTLACE ---
LACE Length of stay for Answers: Less than 1 day current admission Acuity / Level of Answers: No Care: Did the patient have an inpatient admission? Comorbidities - select Answers: Other Notes: afib, hypothyroidism, p ulm all that apply onary hypertension # of Emergency department Answers: 1-2 visits in the last 6 months Social determinants Answers: Lack of community resources and/or lack of social support (no pcp, lives alone, transportation, obi d) Score: 6 Date Signed: 11/09/2018 01:37 PM Electronically Signed By:Stacey Torres RN
--- NOTE | 2018-11-09 13:40 | ASMTDCNOTE ---
Case Management Discharge Discharge Order Complete? Answers: Yes Patient to Obtain Answers: Independently Medications Transportation Arranged Answers: Family/Friends Discharge Comments Notes: 77 year old patient here under observation for afib with RVR. Converted on medication, will start anti-coagulation and is medically cleared for independent discharge to home. CM available should other needs arise. Date Signed: 11/09/2018 01:39 PM Electronically Signed By:Stacey Torres RN
[2018-11-10] MEDS ORDERED: DILTIAZEM CD 180 MG CAP PO SCH (09:00)
--- NOTE | 2018-11-12 05:52 | CPEKG ---
Test Reason : a-fib Blood Pressure : / mmHG Vent. Rate : 063 BPM Atrial Rate : 063 BPM P-R Int : 149 ms QRS Dur : 092 ms QT Int : 400 ms P-R-T Axes : 069 065 049 degrees QTc Int : 410 ms Sinus rhythm Confirmed by Roland Ivey ([id number]) on 11/12/2018 5:52:21 AM Referred By: Milad Fernando Confirmed By:Roland Ivey
== END 2018-11-09 14:15 | disposition home or self-care (01) ==
LOC: EDUNIT# → F2W 18:06
PROVIDERS: ADMIT Internal Medicine; ATTEND Internal Medicine
DX: I48.0 Paroxysmal atrial fibrillation (principal); I50.30 Unspecified diastolic (congestive) heart failure; J96.11 Chronic respiratory failure with hypoxia; I27.20 Pulmonary hypertension, unspecified; R05 Cough; I11.0 Hypertensive heart disease with heart failure; G47.33 Obstructive sleep apnea (adult) (pediatric); J45.909 Unspecified asthma, uncomplicated; E03.9 Hypothyroidism, unspecified; E66.9 Obesity, unspecified; Z79.51 Long term (current) use of inhaled steroids; Z87.891 Personal history of nicotine dependence; Z82.3 Family history of stroke; Z96.659 Presence of unspecified artificial knee joint; Z88.0 Allergy status to penicillin; Z99.81 Dependence on supplemental oxygen
CPT/HCPCS: 93005; 93306; 96365; 96372; 96375; 99291; G0378; J1650

== ENCOUNTER → 2018-11-29 | Outpatient (CLI) | payer OTHER ==
[~2018-11-29] MED LIST: IOPAMIDOL (ISOVUE 370) 100 ML BTL IV ONE
== END ==
LOC: FIMAGING 10:53
PROVIDERS: ATTEND Internal Medicine Pulmonary Disease
DX: J98.09 Other diseases of bronchus, not elsewhere classified (principal); K44.9 Diaphragmatic hernia without obstruction or gangrene
CPT/HCPCS: 71275; Q9967

== ENCOUNTER 2018-12-03 10:46 | Inpatient (IN) | payer OTHER ==
[2018-12-03] MEDS ORDERED: NS 500 ML IV ONE (11:19)
--- NOTE | 2018-12-03 11:28 | EDPHY ---
H & P Time Seen by Provider: 12/03/18 10:57 HPI/ROS: HPI Facial swelling and redness. 78-year-old female by private vehicle. This patient reports that on Sunday she noticed some swelling and redness on the right side of her face above her right cheek. She reports that this got better but spread to the left side of her face. She presents to the emergency department with redness swelling and pain involving her nose in the left side of her face worsening since Sunday. She denies fever. She reports a recent visit to the emergency department with diagnosis of sinusitis. She reports she was placed on prednisone and an unknown antibiotic. I cannot find any record of this visit. She was seen here at the end of October for new onset atrial fibrillation was admitted and then discharged and put on Eliquis. ROS: Constitutional: No fever, no chills. As above. Eyes: No discharge. No changes in vision. ENT: No sore throat. No nasal congestion or rhinorrhea. As above. Respiratory: No cough. No shortness of breath. Cardiac: No chest pain, no palpitations. Gastrointestinal: No abdominal pain, no vomiting, no diarrhea. Genitourinary: No hematuria. No dysuria or increased frequency with urination. Musculoskeletal: No back pain. No neck pain. No myalgias or arthralgias. Skin: As above. Neurological: No headache. No focal weakness or altered sensation. Past medical history: Asthma. Pulmonary hypertension, atrial fibrillation on Eliquis, hypothyroid. Social history: Former smoker. Here by herself. No alcohol. Physical Exam: General Appearance: Alert, no distress. Obese habitus. This patient is responding to questions appropriately and in full sentences. This patient appears well-hydrated and well-nourished. Eyes: Pupils equal and round no pallor or injection. No lid edema, erythema or injection. No proptosis. No pain on extraocular movements. ENT, Mouth: Mucous membranes are moist. The pharyngeal tissues are unremarkable. No edema or swelling. No asymmetry suggestive of abscess. No erythema or exudates. Deep left maxilla erythema with edema up through the lower eyelid and involving the left side of the nose mostly. It is tender on palpation. No crepitus. Respiratory: There are no retractions, lungs are clear to auscultation anteriorly with good air movement bilaterally. Cardiovascular: Regular rate and rhythm. No murmur. Gastrointestinal: Obese habitus. Abdomen is soft and nontender, no masses, bowel sounds normal. No focal tenderness at McBurney's point. No Holguin sign. Neurological: Motor sensory function is grossly intact. Cranial nerves are normal. Gait is normal. Skin: Warm and dry, no rashes. Musculoskeletal: Neck is supple and nontender. Extremities are symmetrical. All joints range without pain or impingement. Psychiatric: No agitation. No depression. Database: EKG: Imaging: Maxillofacial CT with contrast: No evidence of a postseptal infectious process. Results were discussed with staff radiologist Dr. Lorenzo Mace. Procedures: Emergency department course: Triage vital signs reviewed. She is mildly hypertensive. Vital signs are otherwise normal. She is afebrile an IV was placed. She was started on IV normal saline with 500 cc to be given over the next hour. The patient's presentation is consistent with a preseptal cellulitis/erysipelas. CT imaging of her maxillofacial region will be obtained. I explained to the patient that we would likely admit her to the hospitalist service. Blood cultures will be obtained as well. The patient will be started on IV vancomycin and IV ceftriaxone after blood cultures obtained. 11:50 a.m., spoke with on-call hospitalist. The patient is accepted for admission by Dr. James Anthony. The patient's remaining emergency department course under my care has been uneventful. The patient was admitted to the hospitalist service in stable condition. Differential Diagnosis: The differential diagnosis on this patient includes but is not limited to facial cellulitis/erysipelas, preseptal cellulitis, sinusitis. This represents a partial list of diagnoses considered. These considerations are based on history, physical exam, past history, reassessment and diagnostic testing. Smoking Status: Former smoker Constitutional: Initial Vital Signs Temperature (C) 36.7 C 12/03/18 10:55 Heart Rate 71 12/03/18 10:55 Respiratory Rate 16 12/03/18 10:55 Blood Pressure 152/66 H 12/03/18 10:55 O2 Sat (%) 98 12/03/18 10:55 O2 Delivery Mode Nasal Cannula O2 (L/minute) 2 Allergies/Adverse Reactions: penicillin G Allergy (Verified 11/08/18 16:57) phenytoin sodium [From Dilantin] Allergy (Verified 11/08/18 16:57) Home Medications: Medication Instructions Recorded Albuterol Sulfate [PROVENTIL HFA] 1 - 2 puffs IH Q6H PRN 11/08/18 Fluticasone/Salmeter 500/50Mcg 1 puffs IH BID 11/08/18 [Advair 500/50 (*)] Furosemide [Lasix 20 MG (*)] 30 mg PO DAILY 11/08/18 Levothyroxine [Synthroid 112 mcg 112 mcg PO DAILY06 11/08/18 (*)] Apixaban [Eliquis 30-day Starter 1 kit PO AD #1 kit 11/09/18 Pack (PE/DVT treatment)] Diltiazem Cd [Cardizem ER Q24hr] 180 mg PO DAILY #30 cap 11/09/18 Medical Decision Making - Data Points Laboratory Results: Laboratory Results 12/03/18 11:15 12/03/18 11:15 12/03/18 12/03/18 11:15 11:15 WBC 11.78 10^3/uL H 10^3/uL (3.80-9.50) RBC 4.75 10^6/uL 10^6/uL (4.18-5.33) Hgb 13.9 g/dL g/dL (12.6-16.3) Hct 42.1 % % (38.0-47.0) MCV 88.6 fL fL (81.5-99.8) MCH 29.3 pg pg (27.9-34.1) MCHC 33.0 g/dL g/dL (32.4-36.7) RDW 15.3 % H % (11.5-15.2) Plt Count 382 10^3/uL 10^3/uL (150-400) MPV 9.8 fL fL (8.7-11.7) Neut % (Auto) 78.1 % H % (39.3-74.2) Lymph % (Auto) 12.1 % L % (15.0-45.0) Stewart % (Auto) 8.7 % % (4.5-13.0) Eos % (Auto) 0.4 % L % (0.6-7.6) Baso % (Auto) 0.4 % % (0.3-1.7) Nucleat RBC Rel Count 0.0 % % (0.0-0.2) Absolute Neuts (auto) 9.19 10^3/uL H 10^3/uL (1.70-6.50) Absolute Lymphs (auto) 1.43 10^3/uL 10^3/uL (1.00-3.00) Absolute Monos (auto) 1.02 10^3/uL H 10^3/uL (0.30-0.80) Absolute Eos (auto) 0.05 10^3/uL 10^3/uL (0.03-0.40) Absolute Basos (auto) 0.05 10^3/uL 10^3/uL (0.02-0.10) Absolute Nucleated RBC 0.00 10^3/uL 10^3/uL (0-0.01) Immature Gran % 0.3 % % (0.0-1.1) Immature Gran # 0.04 10^3/uL 10^3/uL (0.00-0.10) Sodium 137 mEq/L mEq/L (135-145) Potassium 5.0 mEq/L mEq/L (3.5-5.2) Chloride 106 mEq/L mEq/L (97-110) Carbon Dioxide 22 mEq/l mEq/l (22-31) Anion Gap 9 mEq/L mEq/L (6-14) BUN 22 mg/dL mg/dL (7-23) Creatinine 0.8 mg/dL mg/dL (0.6-1.0) Estimated GFR > 60 Glucose 110 mg/dL H mg/dL (70-100) Calcium 10.1 mg/dL mg/dL (8.5-10.4) Specimen Hemolysis 168 Medications Given: Discontinued Medications Sodium Chloride (Ns) 500 mls @ 0 mls/hr IV ONCE ONE; Wide Open PRN Reason: Protocol Stop: 12/03/18 11:20 Last Admin: 12/03/18 12:02 Dose: 500 mls Ceftriaxone Sodium 2 gm/ (Sodium Chloride) 50 mls @ 100 mls/hr IV EDNOW ONE PRN Reason: Protocol Stop: 12/03/18 12:14 Last Admin: 12/03/18 12:19 Dose: 50 mls Departure - Departure Disposition: [facility] Inpatient Acute Clinical Impression: Facial cellulitis
[2018-12-03 11:39] LABS: PLATELET COUNT 382 10^3/uL (150-400)
[2018-12-03] MEDS ORDERED: VANCOMYCIN 1.25 GM in D5W 250 ML IV ONE (11:46)
[2018-12-03] MEDS ORDERED: cefTRIAXone 1 GM/DEXTROSE 1 GM/50 ML BAG IV ONE (12:16)
[2018-12-03] MEDS ORDERED: IOPAMIDOL (ISOVUE-300) 100 ML BTL ONE (12:24)
[2018-12-03] MEDS ORDERED: ONDANSETRON DISINTEGRATING 4 MG TAB PO PRN (12:36)
[2018-12-03] MEDS ORDERED: ACETAMINOPHEN 325 MG TAB PO PRN (12:36)
[2018-12-03] MEDS ORDERED: ONDANSETRON 4 MG/2 ML VIAL IVP PRN (12:36)
[2018-12-03] MEDS ORDERED: oxyCODONE IR 5 MG TAB PO PRN (12:36)
--- NOTE | 2018-12-03 12:47 | PDGENHP ---
History and Physical - Chief Complaint Facial redness - History of Present Illness 78 y/o female w/recently diagnosed atrial fibrillation and anticoagulated with Eliquis, hypothyroidism, obstructive sleep apnea, chronic nocturnal hypoxemic respiratory failure (chronically wears 2 L nasal cannula of oxygen supplementation continuously) and pulmonary hypertension presents with facial redness, onset Sunday. She reports this started on the right side of her face however spread to her left side of her face involving her entire nose with the right side resolved. It is tender to palpation, erythematous and edematous characteristic of erysipelas. Involves her periorbital area and cheek as stated before as well as her nose which is not tender to palpation. She denies vision changes, headaches. She was recently diagnosed with sinusitis and treated with prednisone and Bactrim. There is no scratch or cut on her cheek or portal of entry visualized. No history of MRSA. She is being admitted for further workup, treatment and monitoring. History Information - Allergies/Home Medication List Allergies/Adverse Reactions: penicillin G Allergy (Verified 11/08/18 16:57) phenytoin sodium [From Dilantin] Allergy (Verified 11/08/18 16:57) Home Medications: Albuterol Sulfate [PROVENTIL HFA] 1 - 2 puffs IH Q6H PRN 11/08/18 [Last Taken Unknown] Fluticasone/Salmeter 500/50Mcg [Advair 500/50 (*)] 1 puffs IH BID 11/08/18 [ Last Taken Unknown] Furosemide [Lasix 20 MG (*)] 30 mg PO DAILY 11/08/18 [Last Taken 11/08/18] Levothyroxine [Synthroid 112 mcg (*)] 112 mcg PO DAILY06 11/08/18 [Last Taken ] I have personally reviewed and updated: family history, medical history, social history, surgical history - Past Medical History asthma Additional medical history: Pulm HTN, atrial fibrillation, hypothyroidism - Surgical History Reports: no pertinent surgical hx - Family History Positive for: non-pertinent - Social History Smoking Status: Former smoker Alcohol Use: Rarely Drug Use: None Additional social history: , lives independently Review of Systems Review of Systems: ROS: 10pt was reviewed & negative except for what was stated in HPI & below Physical Exam Physical Exam: Lab data and imaging reviewed. White blood count: 11.78 Hemoglobin and hematocrit: 13.9 and 42.1 Platelet count: 382 Sodium: 137 Potassium: 5.00 Chloride: 106 Carbon dioxide: 22 BUN/Cr: 22/0.[address]: Did not show portal entry, abscess or bone abnormalities Temp Pulse Resp BP Pulse Ox 36.7 C 71 16 152/66 H 98 12/03/18 10:55 12/03/18 10:55 12/03/18 10:55 12/03/18 10:55 12/03/18 10:55 Constitutional: appears nourished, obese Eyes: PERRL, anicteric sclera, EOMI Ears, Nose, Mouth, Throat: moist mucous membranes, hearing normal, ears appear normal, no oral mucosal ulcers Cardiovascular: regular rate and rhythym, no murmur, rub, or gallop, No edema Peripheral Pulses: 2+: dorsalis-pedis (R), dorsalis-pedis (L) Respiratory: reduced air movement Gastrointestinal: normoactive bowel sounds, soft, non-tender abdomen, no palpable masses Genitourinary: no bladder fullness, no bladder tenderness Skin: no fluctuance, erythema, induration, other (See HPI) Musculoskeletal: full muscle strength, no muscle tenderness, normal joint ROM, no joint effusions Neurologic: AAOx3, sensation intact bilaterally, CN II-XII Intact Psychiatric: interacting appropriately, not anxious, not encephalopathic, thought process linear Lymph, Heme, Immunologic: no cervical LAD, no supraclavicular LAD Lab Data & Imaging Review 12/03/18 11:15 12/03/18 11:15 WBC 11.78 10^3/uL (3.80-9.50) H 12/03/18 11:15 RBC 4.75 10^6/uL (4.18-5.33) 12/03/18 11:15 Hgb 13.9 g/dL (12.6-16.3) 12/03/18 11:15 Hct 42.1 % (38.0-47.0) 12/03/18 11:15 MCV 88.6 fL (81.5-99.8) 12/03/18 11:15 MCH 29.3 pg (27.9-34.1) 12/03/18 11:15 MCHC 33.0 g/dL (32.4-36.7) 12/03/18 11:15 RDW 15.3 % (11.5-15.2) H 12/03/18 11:15 Plt Count 382 10^3/uL (150-400) 12/03/18 11:15 MPV 9.8 fL (8.7-11.7) 12/03/18 11:15 Neut % (Auto) 78.1 % (39.3-74.2) H 12/03/18 11:15 Lymph % (Auto) 12.1 % (15.0-45.0) L 12/03/18 11:15 [place] % (Auto) 8.7 % (4.5-13.0) 12/03/18 11:15 Eos % (Auto) 0.4 % (0.6-7.6) L 12/03/18 11:15 Baso % (Auto) 0.4 % (0.3-1.7) 12/03/18 11:15 Nucleat RBC Rel Count 0.0 % (0.0-0.2) 12/03/18 11:15 Absolute Neuts (auto) 9.19 10^3/uL (1.70-6.50) H 12/03/18 11:15 Absolute Lymphs (auto) 1.43 10^3/uL (1.00-3.00) 12/03/18 11:15 Absolute Monos (auto) 1.02 10^3/uL (0.30-0.80) H 12/03/18 11:15 Absolute Eos (auto) 0.05 10^3/uL (0.03-0.40) 12/03/18 11:15 Absolute Basos (auto) 0.05 10^3/uL (0.02-0.10) 12/03/18 11:15 Absolute Nucleated RBC 0.00 10^3/uL (0-0.01) 12/03/18 11:15 Immature Gran % 0.3 % (0.0-1.1) 12/03/18 11:15 Immature Gran # 0.04 10^3/uL (0.00-0.10) 12/03/18 11:15 Sodium 137 mEq/L (135-145) 12/03/18 11:15 Potassium 5.0 mEq/L (3.5-5.2) 12/03/18 11:15 Chloride 106 mEq/L (97-110) 12/03/18 11:15 Carbon Dioxide 22 mEq/l (22-31) 12/03/18 11:15 Anion Gap 9 mEq/L (6-14) 12/03/18 11:15 BUN 22 mg/dL (7-23) 12/03/18 11:15 Creatinine 0.8 mg/dL (0.6-1.0) 12/03/18 11:15 Estimated GFR > 60 12/03/18 11:15 Glucose 110 mg/dL (70-100) H 12/03/18 11:15 Calcium 10.1 mg/dL (8.5-10.4) 12/03/18 11:15 Specimen Hemolysis 168 12/03/18 11:15 Assessment & Plan Plan: 78-year-old female with recent hospitalization due to new onset atrial fibrillation with RVR and continued sinusitis symptoms presenting with left- sided facial cellulitis.Her vital signs are the following: Blood pressure 152/ 66, heart rate 71, respiration 16, temperature 36.7 degrees, oxygen 98% on 2 L nasal cannula #Facial cellulitis: Mild leukocytosis, afebrile -Received ceftriaxone and vancomycin in the emergency room. I spoke with Dr. Jamey Forde to which he recommended ceftriaxone moving forward considering the location of the cellulitis and her past history of sinusitis (came through the emergency room early October 2018 with sinusitis and was given a Medrol Dosepak and Bactrim). Consider formally consulting ID if her condition does not improve by tomorrow morning. -Blood cultures pending -Checking white blood cell count and creatinine in the morning #Atrial Fibrillation (diagnosed during most recent hospitalization of mid to late October 2018) -Cont tele d/t recent diagnosis -Cont Eliquis -Dr. Carmen Espinoza is her truer pinion and wheel; recently sent in her Zio patch w/the following reading: Average heart rate was 89 beats per minute, predominant underlying rhythm was atrial fibrillation, 29 supraventricular tachycardia runs occurred the run with the fastest interval lasting 7 beats with a maximum rate of 160 beats per minute. Atrial fibrillation occurred 54% burden 58-170 beats per minute. The patient is to schedule another follow-up appointment with Cardiology to discuss results. #Pulmonary HTN -She appears euvolemic; continue Lasix -Last echo report 11/09/2018 reports pulmonary artery pressure is mildly increased. Right ventricular systolic pressure is measured at 42 to mm Hg and compared to an echo in January 2018 the right ventricular systolic pressure has improved from 46 mm per mercury. #SHAUNA on CPAP/Asthma -She chronically wears 2 L nasal cannula of oxygen throughout the day and utilizes a nasal cannula CPAP machine at nighttime -Recently followed up with Dr. Smith; will follow up in 6-8 weeks to have lung function testing, CTA of chest to evaluate pulmonary vasculature and rule out ILD and to bring CPAP machine and all supplies for the next visit -Continue home inhalers #Hypothyroid -Cont L4T Diet: Regular Code: Full VTE PPX: Eliquis Dispo: Admit inpatient
--- NOTE | 2018-12-03 14:08 | HOSPPROG ---
Hospitalist Progress Note Assessment/Plan: 78F, recent sinusitis presents with L sided facial cellulitis. CT without ocular or post-septal involvement A/P: # facial cellulitis - ID recommends rocephin; no evidence for infection of deeper structures; not septic, mild leukocytosis # a-fib - eliquis and diltiazem # pulm-htn - lasix # SHAUNA/CPAP Objective: Vital Signs Temp Pulse Resp BP Pulse Ox 36.8 C 85 18 154/75 H 96 12/03/18 13:53 12/03/18 13:53 12/03/18 13:53 12/03/18 13:53 12/03/18 13:53 ICD10 Worksheet Patient Problems: Problems Problem Status Onset Osteoarthritis of left knee Acute New onset atrial fibrillation Acute Atrial fibrillation with RVR Acute Facial cellulitis Acute
--- NOTE | 2018-12-03 14:16 | PDMN ---
Medical Necessity Medical [place] [facility] [place], A-2 days: 78 yo w/ tenderness and facial redness involving periorbital area and cheek in setting of recent sinusitis in which pt received steroids and PO antibx. Eval reveals facial cellulitis. IV antibx started. [place] [facility] [place] M70 w/ orbital infection. Hx recent afib w/ RVR dx on anticoag, pulm HTN, hypothyroid
[2018-12-03] MEDS: APIXABAN 5 MG TAB PO SCH (20:24)
[2018-12-03] MEDS: FLUTICASONE/SALMETER 500/50MCG DISKUS IH SCH (21:33)
[2018-12-04] MEDS: LEVOTHYROXINE 112 MCG TAB PO SCH (04:44)
[2018-12-04] MEDS: FUROSEMIDE 40 MG TAB PO SCH (08:24)
[2018-12-04] MEDS: APIXABAN 5 MG TAB PO SCH ×2 (08:24→20:41)
[2018-12-04] MEDS: DILTIAZEM CD 180 MG CAP PO SCH (08:24)
[2018-12-04] MEDS: FLUTICASONE/SALMETER 500/50MCG DISKUS IH SCH ×2 (10:18→21:44)
--- NOTE | 2018-12-04 11:14 | ASMTCMCOM ---
CM Note CM Note Notes: Pt is a 78 y/o female admitted for facial cellulitis and erysipelas. CM met w/ pt and introduced self. Pt is and lives alone. Pt uses 2L of o2 at baseline. Pt reports that she has friends/family that live nearby that can help. Pt does not use a walker or cane at baseline. Pt reports that she is still able to drive, get herself groceries and cook. Pt reports that she does not need anything at this time. No therapies have not been ordered. Anticipate that pt will d/c independent when medically stable. CM available for changes. Plan: Independent Date Signed: 12/04/2018 11:13 AM Electronically Signed By:FLORA Sam
--- NOTE | 2018-12-04 12:40 | HOSPPROG ---
Hospitalist Progress Note Assessment/Plan: 78F, recent sinusitis presents with L sided facial cellulitis. First encounter, chart reviewed. # facial cellulitis -ID recommended Rocephin -CT without ocular or post-septal involvement #leukocytosis -resolved # a-fib - Eliquis and diltiazem -in sinus during my evaluation # pulm-htn - Lasix # SHAUNA/CPAP -chronically wears 2 Liters of O2 -to f/u with Dr Alcala #plan: Dr Webster to see Leigha Art today, will further discuss w her if the patient needs IV abx or can go on oral. Subjective: Leigha Art said her face pain is much better. Objective: Vital Signs Temp Pulse Resp BP Pulse Ox 36.8 C 73 20 120/61 92 12/04/18 11:34 12/04/18 11:34 12/04/18 11:34 12/04/18 11:34 12/04/18 11:34 Laboratory Results 12/04/18 04:42 12/04/18 04:42 12/03/18 12/04/18 12/05/18 05:59 05:59 05:59 Intake Total 300 Balance 300 - Physical Exam Constitutional: no apparent distress, appears nourished, not in pain, obese Eyes: PERRL Ears, Nose, Mouth, Throat: hearing normal Cardiovascular: regular rate and rhythym Respiratory: no respiratory distress, reduced air movement (bibasilar) Skin: warm, other (left cheek area extending under the left eye and onto the nasal area w redness, warmth.) Musculoskeletal: full muscle strength Neurologic: AAOx3 Psychiatric: interacting appropriately ICD10 Worksheet Patient Problems: Problems Problem Status Onset Facial cellulitis Acute Atrial fibrillation with RVR Acute New onset atrial fibrillation Acute Osteoarthritis of left knee Acute
[2018-12-04] MEDS: METOPROLOL SUCCINATE XR 25 MG TAB PO SCH (15:26)
--- NOTE | 2018-12-04 18:08 | GCON ---
[f rep st] CONSULTATION INFECTIOUS DISEASE CONSULTATION DATE OF CONSULTATION: 12/04/2018 REFERRING PHYSICIAN: Macrina Forbes NP REASON FOR CONSULTATION: Facial cellulitis. HISTORY OF PRESENT ILLNESS: 78-year-old woman who started to notice a right facial swelling on December 01, which moved to the left side. It became progressively redder and painful, but no asso ciated fever or malaise. Due to the progressive redness, her primary care recommended evaluation in the emergency room, which she presented on the and was found to have left facial cellulitis. A corresponding CT of the face showed periorbital soft tissue swelling on the left without intraorbital inflammation. No significant sinusitis. The patient was admitted to the hospital, given 1 dose of vancomycin in the emergency room, and started on ceftriaxone 2 g IV daily. The patient felt that her swelling in her face was worse this morning, but is improved this afternoon, and she feels there is some recession of erythema over her nose. She still has some mild discomfort in the mid cheek region . She denies a specific injury to her face that precipitated this episode. She did have crowns plac ed on the right molars 2 weeks ago, but has no residual tooth pain. She does have mild left jaw pain . Denies eye pain or ear pain. She denies any pain with movement of her jaw. No headache. No visu al changes. PAST MEDICAL HISTORY: Pulmonary hypertension on chronic oxygen supplementation, asthma, hypercalcemi a, hypothyroidism, obstructive sleep apnea, paroxysmal atrial fibrillation, primary hyperparathyroidi sm, sick sinus syndrome. SOCIAL HISTORY: She is a retired accountant budget. She is originally from [place]. Former tobacco. L jose alone. Some alcohol. . FAMILY HISTORY: Positive for stroke, prostate neoplasm, and COPD. ALLERGIES: Penicillin. She had a dental procedure May 2018, which she developed hives and near syncope. An ambulance came and recommended that she go to the hospital, but she deferred and took ov [id number] medicine. She is unsure what type to help resolve her symptoms. Phenytoin she states triggered a seizure 30 years ago due to toxicity. MEDICATIONS: Advair, Eliquis, Lasix, levothyroxine, metoprolol, Ventolin, and she was started on cef triaxone 2 g IV daily. REVIEW OF SYSTEMS: A complete 10-point review of systems was performed and is negative, except as me ntioned in HPI. She denies GI symptoms. She denies contact with small children and no sick contacts . PHYSICAL EXAM: VITAL SIGNS: Heart rate 108 to 120, BP 112/75, saturation 93% on 2 L, temperature 36 .9. She has been afebrile throughout the hospital course. GENERAL: This is a pleasant woman sittin g up in bed, nontoxic. HEENT/NECK: Extraocular muscles are intact. Pupils are reactive. No conjun ctival hemorrhages or lesions. Oropharynx: Obvious prior extensive dental work, but no obvious dent al caries. Moist mucous membranes. No ulcerations or exudates. Exam of her face showed erythema ov er her left nasolabial fold, cheek, and under her eye without involving her upper eyelid. Mild tende rness, but no crepitus or fluctuance was noted. No submandibular lymphadenopathy or lymphadenopathy of the neck. Neck was supple. CARDIOVASCULAR: Tachycardic and irregular. No murmurs. CHEST: Bas es had some Velcro like crackles. No wheezes. ABDOMEN: Obese, soft, nontender. EXTREMITIES: Trac e lower extremity edema. NEUROLOGIC: Patient was ambulating about the room without difficulty, and alert and oriented x4. Facial cranial nerves were intact. LABORATORY: White count on admission 11.7 today, 8.9, hematocrit 42, platelets 382. Creatinine 0.8. Blood cultures from 12/03/2018, are pending. ASSESSMENT AND PLAN: This is a 78-year-old woman with multiple medical problems who presents with le ft facial cellulitis without concerning findings with normal extraocular movements. CT scan without evidence of sinusitis. No cranial nerve abnormalities. Her erythema has a mariah appearance today warren ggestive of improvement. Suspect primary pathogen of Streptococcus. Patient has no history of methi cillin-resistant Staphylococcus aureus and does have a fairly recent urine culture in October of 2018, with group A strep. 1. Would continue intravenous ceftriaxone. Suspect discharge for tomorrow. 2. Could possibly step-down antibiotics tomorrow. Patient is completely unwilling to try penicillin and did have a fairly severe recent reaction. Could consider step-down to Keflex tomorrow. 3. Reviewed the risks and benefits of antibiotic therapy and pathogenesis of infection, including po tential portals of entry. In this case, it is unclear. Suspect minor trauma as a source. Notably a bsent are signs of dental or sinus disease. 4. Thank you for this consult. We will continue to see on a daily basis. /[id number]/MODL
[2018-12-05] MEDS: LEVOTHYROXINE 112 MCG TAB PO SCH (05:39)
[2018-12-05] MEDS: FUROSEMIDE 40 MG TAB PO SCH (07:58)
[2018-12-05] MEDS: APIXABAN 5 MG TAB PO SCH (07:58)
[2018-12-05] MEDS: DILTIAZEM CD 180 MG CAP PO SCH (07:58)
[2018-12-05] MEDS: METOPROLOL SUCCINATE XR 25 MG TAB PO SCH (07:59)
--- NOTE | 2018-12-05 08:12 | PCMIDPN ---
Assessment/Plan: L facial erysipelas vs cellulitis: likely strep mediated. Much better today with significant fading of erythema, sloughing off skin. Suspect source of skin trauma may have been CPAP mask --dc on 5 more days Keflex 500mg PO TID start 12/06 --ID fu not needed Meds ceftriaxone 2gm IV daily #3 micro 12/03 blood cx (2) NGTD Subjective: Patient feels left facial redness is less intense today. Hopeful to be going home Objective: Vital Signs Temp Pulse Resp BP Pulse Ox 36.9 C 97 22 H 121/69 H 95 12/05/18 04:00 12/05/18 08:00 12/05/18 08:00 12/05/18 04:00 12/05/18 08:00 Laboratory Results 12/04/18 04:42 12/04/18 04:42 12/04/18 12/05/18 12/06/18 05:59 05:59 05:59 Intake Total 300 Balance 300 - Physical Exam General Appearance: alert EENT: PERRL/EOMI, other, No pale conjunctiva Respiratory: No accessory muscle use Skin: No rash Neuro/Psych: alert, normal mood/affect, oriented x 3, No abnormal CN - Time Spent With Patient Time Spent with Patient: greater than 25 minutes (Care coordinated with hospitalist) Time Spent with Patient: Greater than 25 minutes spent on this patients care, greater than 50% of time spent counseling, educating, and coordinating care regarding the above mentioned plan. ICD10 Worksheet Patient Problems: Problems Problem Status Onset Atrial fibrillation with RVR Acute Facial cellulitis Acute New onset atrial fibrillation Acute Osteoarthritis of left knee Acute
[2018-12-05 08:23] VITALS: BP 106/76
--- NOTE | 2018-12-05 08:42 | HOSPPROG ---
Hospitalist Progress Note Assessment/Plan: 78F, recent sinusitis presents with L sided facial cellulitis. # facial cellulitis vs erysipelas -dc on 5 more days of Keflex 500 mg tid to start on 12/06 -CT without ocular or post-septal involvement #leukocytosis -resolved # a-fib - Eliquis and diltiazem -in sinus during my evaluation # pulm-htn - Lasix # SHAUNA/CPAP -chronically wears 2 Liters of O2 -to f/u with Dr Alcala #plan: she is feeling much better today Subjective: Leigha Art is feeling well, no complaints. Objective: Vital Signs Temp Pulse Resp BP Pulse Ox 36.6 C 97 15 106/76 95 12/05/18 08:00 12/05/18 08:00 12/05/18 08:00 12/05/18 08:00 12/05/18 08:00 Laboratory Results 12/04/18 04:42 12/04/18 04:42 12/04/18 12/05/18 12/06/18 05:59 05:59 05:59 Intake Total 300 Balance 300 - Physical Exam Constitutional: appears nourished, not in pain, obese Eyes: PERRL Ears, Nose, Mouth, Throat: hearing normal Cardiovascular: irregularly irregular, No tachycardia Respiratory: no respiratory distress, reduced air movement Skin: warm, other (left sided facial redness and swelling much improved, has some dry skin) Musculoskeletal: generalized weakness Neurologic: AAOx3 Psychiatric: interacting appropriately ICD10 Worksheet Patient Problems: Problems Problem Status Onset Facial cellulitis Acute Atrial fibrillation with RVR Acute New onset atrial fibrillation Acute Osteoarthritis of left knee Acute
[2018-12-05] MEDS: FLUTICASONE/SALMETER 500/50MCG DISKUS IH SCH (09:09)
--- NOTE | 2018-12-05 09:59 | GDS ---
[f rep st] DISCHARGE SUMMARY DISCHARGE DIAGNOSES: 1. Left facial cellulitis. 2. Leukocytosis. 3. Atrial fibrillation. 4. Pulmonary hypertension. 5. Obstructive sleep apnea. CONSULTATION: Dr. Webster. Briefly, the patient is a 78-year-old woman who noticed she had some facial swelling on Sunday that originally started on the right side but moved to the left side. It became redder and painful with no associated fever or malaise. She had a CT of the face, which showed periorbital soft tissue swelling on the left without intraorbital inflammation, without significant sinusitis. She was treated with ceftriaxone. She improved throughout her stay. She will be discharged home on Keflex and this will be started tomorrow. HOSPITAL COURSE PER PROBLEM: 1. Left facial cellulitis, markedly improved. To follow up with her primary care provider. 2. Leukocytosis, resolved. 3. Atrial fibrillation. She is currently in atrial fibrillation, rate controlled. Resumed her Eliquis, diltiazem and beta rommel. 4. Pulmonary hypertension. On Lasix. 5. Obstructive sleep apnea. She wears CPAP. At baseline wears 2 L of oxygen at all times. DISCHARGE CONDITION: Stable. Blood pressure is 106/76, heart rate of 97, respiratory rate of 15, O2 saturations on 3.5 L are 95%, and temperature is 36.6 Celsius. MEDICATIONS AT DISCHARGE: Please see the EMR. DISCHARGE INSTRUCTIONS: 1. To follow up with her primary care provider. 2. To start the Keflex on December 06. 3. If she develops more than 3 liquid stools a day to see her PCP immediately. /[id number]/MODL MTDD
== END 2018-12-05 10:40 | disposition home or self-care (01) | DRG 603 ==
LOC: F3E 14:05
PROVIDERS: ADMIT Student in an Organized Health Care Education/Training Program; ATTEND Internal Medicine
DX: L03.211 Cellulitis of face (principal); I48.0 Paroxysmal atrial fibrillation; I27.20 Pulmonary hypertension, unspecified; J45.909 Unspecified asthma, uncomplicated; E03.9 Hypothyroidism, unspecified; G47.33 Obstructive sleep apnea (adult) (pediatric); Z99.81 Dependence on supplemental oxygen; Z79.01 Long term (current) use of anticoagulants
CPT/HCPCS: 96365; J0696; J3370; Q9967

== ENCOUNTER 2018-12-09 15:28 | Emergency (ER) | payer OTHER ==
--- NOTE | 2018-12-09 15:47 | EDPHY ---
H & P Stated Complaint: inpt for cellulitis on face, dschgd 3 days ago, now swelling in right hand Time Seen by Provider: 12/09/18 15:46 HPI/ROS: CHIEF COMPLAINT: Right wrist swelling and pain HISTORY OF PRESENT ILLNESS: The patient presents the ED with atraumatic swelling to the right wrist. The patient was recently hospitalized for IV antibiotics for treatment of facial cellulitis. She did have an IV in that arm. The patient denies any additional arthralgias. She denies any acute numbness or weakness. She denies any history of fall or trauma. She has moderate to severe pain that is worsened with movement. The patient denies any fever. She denies any cellulitic skin changes. REVIEW OF SYSTEMS: A comprehensive 10 point review of systems is otherwise negative aside from elements mentioned in the history of present illness. Source: Patient - Personal History Current Tetanus/Diphtheria Vaccine: Yes Current Tetanus Diphtheria and Acellular Pertussis (TDAP): Yes - Medical/Surgical History Hx Asthma: Yes Hx Chronic Respiratory Disease: Yes Hx Diabetes: Yes Hx Cardiac Disease: Yes Hx Renal Disease: No Hx Cirrhosis: No Hx Alcoholism: No Hx HIV/AIDS: No Hx Splenectomy or Spleen Trauma: No Other PMH: sezuire x 1 30 years ago, carpel tunnel B, catract surgery, afib, HTN , hypothyroidism, possible asthma, cellulitis, left knee replacement - Social History Smoking Status: Former smoker - Physical Exam Exam: General Appearance: Alert, no distress Eyes: Pupils equal and round no pallor or injection ENT, Mouth: Mucous membranes moist Respiratory: There are no retractions, lungs are clear to auscultation Cardiovascular: Regular rate and rhythm Gastrointestinal: Abdomen is soft and nontender, no masses, bowel sounds normal Neurological: 5/5 strength noted all 4 extremities, normal sensory exam Skin: No cellulitic changes or abscess noted to the right wrist. Musculoskeletal: Neck is supple nontender, supple right forearm and biceps without clinical evidence of DVT Extremities: Tenderness and swelling localized to the right wrist with slight effusion Constitutional: Initial Vital Signs Temperature (C) 36.9 C 12/09/18 15:35 Heart Rate 120 H 12/09/18 15:35 Respiratory Rate 16 12/09/18 15:35 Blood Pressure 137/98 H 12/09/18 15:35 O2 Sat (%) 90 L 12/09/18 15:35 O2 Delivery Mode Nasal Cannula O2 (L/minute) 2 Allergies/Adverse Reactions: penicillin G Allergy (Intermediate, Verified 12/09/18 15:40) Hives phenytoin sodium [From Dilantin] Allergy (Unknown, Verified 12/09/18 15:40) Other-Enter Comments Home Medications: Medication Instructions Recorded Fluticasone/Salmeter 500/50Mcg 1 puffs IH BID 11/08/18 [Advair 500/50 (*)] Levothyroxine [Synthroid 112 mcg 112 mcg PO DAILY06 11/08/18 (*)] Diltiazem Cd [Cardizem ER Q24hr] 180 mg PO DAILY #30 cap 11/09/18 Apixaban [Eliquis] 5 mg PO BID 12/03/18 Furosemide [Lasix 40 MG (*)] 40 mg PO DAILY 12/03/18 Metoprolol Succinate Xr [Toprol Xl 25 mg PO DAILY 12/04/18 25 mg (*)] Cephalexin [Keflex (*)] 500 mg PO TID #15 cap 12/05/18 Medical Decision Making - Diagnostics Imaging Results: Imaging Impressions Wrist X-Ray 12/09/18 16:21 Impression: 1. Underlying osteoarthritis as detailed above. Procedures: Procedure: Arthrocentesis. Indication: Evaluation for the possibility of septic joint. Risks, benefits, alternatives of the procedure were discussed with the patient and consent obtained. The patient was prepped and draped in the usual sterile fashion over the right wrist joint. Local anesthesia was provided with 1% lidocaine. The joint space was entered with a 18 gauge needle and 0.5 of pink fluid was obtained. There were no complications. The procedure was performed by myself. ED Course/Re-evaluation: The patient presents to the ED with a right wrist arthropathy. The patient had recently been treated with IV antibiotics for facial cellulitis. The patient has no clinical evidence of a septic arthritis involving the elbow or shoulder. She has no clinical evidence of a cellulitis or abscess. The patient's x-ray demonstrates only arthritis. She has indeterminately elevated inflammatory markers. The patient has no overt symptoms of cellulitis or abscess. 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 The patient will be advised to use NSAIDs for management of her symptoms. Differential Diagnosis: Differential diagnosis considered includes arthritis, septic arthritis, inflammatory arthritis - Data Points Laboratory Results: Laboratory Results 12/09/18 16:30 12/09/18 16:30 12/09/18 12/09/18 12/09/18 17:38 16:30 16:30 WBC 12.26 10^3/uL H 10^3/uL (3.80-9.50) RBC 4.85 10^6/uL 10^6/uL (4.18-5.33) Hgb 13.8 g/dL g/dL (12.6-16.3) Hct 42.5 % % (38.0-47.0) MCV 87.6 fL fL (81.5-99.8) MCH 28.5 pg pg (27.9-34.1) MCHC 32.5 g/dL g/dL (32.4-36.7) RDW 15.2 % % (11.5-15.2) Plt Count 381 10^3/uL 10^3/uL (150-400) MPV 9.4 fL fL (8.7-11.7) Neut % (Auto) 83.1 % H % (39.3-74.2) Lymph % (Auto) 9.0 % L % (15.0-45.0) [place] % (Auto) 6.9 % % (4.5-13.0) Eos % (Auto) 0.4 % L % (0.6-7.6) Baso % (Auto) 0.3 % % (0.3-1.7) Nucleat RBC Rel Count 0.0 % % (0.0-0.2) Absolute Neuts (auto) 10.18 10^3/uL H 10^3/uL (1.70-6.50) Absolute Lymphs (auto) 1.10 10^3/uL 10^3/uL (1.00-3.00) Absolute Monos (auto) 0.85 10^3/uL H 10^3/uL (0.30-0.80) Absolute Eos (auto) 0.05 10^3/uL 10^3/uL (0.03-0.40) Absolute Basos (auto) 0.04 10^3/uL 10^3/uL (0.02-0.10) Absolute Nucleated RBC 0.00 10^3/uL 10^3/uL (0-0.01) Immature Gran % 0.3 % % (0.0-1.1) Immature Gran # 0.04 10^3/uL 10^3/uL (0.00-0.10) ESR 45 MM/HR H MM/HR (0-30) Sodium 132 mEq/L L mEq/L (135-145) Potassium 4.5 mEq/L mEq/L (3.5-5.2) Chloride 99 mEq/L mEq/L (97-110) Carbon Dioxide 25 mEq/l mEq/l (22-31) Anion Gap 8 mEq/L mEq/L (6-14) BUN 16 mg/dL mg/dL (7-23) Creatinine 0.7 mg/dL mg/dL (0.6-1.0) Estimated GFR > 60 Glucose 123 mg/dL H mg/dL (70-100) Calcium 9.9 mg/dL mg/dL (8.5-10.4) C-Reactive Protein 46.2 mg/L H mg/L (<10.0) Synovial Source SYNOVIAL Synovial Color PINK H (CLS/PALE YL) Synovial Appearance HAZY H (CLEAR) Synovial WBC TNP Synovial RBC TNP Synovial Crystals Pending Departure - Departure Disposition: Home, Routine, Self-Care Clinical Impression: Pseudogout of right wrist Condition: Good Instructions: Pseudogout (ED) Additional Instructions: 1. Take Ibuprofen or Motrin 600 mg by mouth three times a day. 2. Velcro wrist splint as needed for comfort 3. Follow up with your primary care provider for recheck in the next week. 4. Return to the ED for markedly worsening symptoms of pain, redness or fever. Referrals: Fara Kaiser MD [Primary Care Provider] - As per Instructions
[2018-12-09 16:41] LABS: PLATELET COUNT 381 10^3/uL (150-400)
[2018-12-09 18:37] VITALS: BP 115/92
== END 2018-12-09 18:54 | disposition home or self-care (01) ==
PROC: 0R9N3ZZ Drainage of Right Wrist Joint, Percutaneous Approach (ICD-10-PCS; principal; 2018-12-09)
DX: M11.231 Other chondrocalcinosis, right wrist (principal)
CPT/HCPCS: 20605; 73110; 99284; L3984

== ENCOUNTER → 2019-01-27 | Outpatient (CLI) | payer OTHER | LOC: BMCIMAGING 07:24 ==